=== PATIENT | female | born 1980 | race American Indian/Alaskan Native ===

== ENCOUNTER 2017-02-08 11:31 | Emergency (ER) | payer OTHER ==
--- NOTE | 2017-02-08 14:58 | XRay Report ---
LEFT TOES: History: Fifth toe pain. The bony architecture is intact. Bony alignment is normal. No soft tissue abnormalities are seen. The joint spaces appear preserved. IMPRESSION: Normal left toes.
[2017-02-08] MEDS ORDERED: ULTRAM PO ONE (16:49)
[2017-02-08 16:57] VITALS: BP 151/89
--- NOTE | 2017-02-09 22:04 | Emergency Department Report ---
Entered by AVERY ANGEL, acting as scribe for ZAN BELTRÁN NP. ED Lower Extremity HPI - General Chief Complaint: Extremity Injury, Lower Stated Complaint: PAIN IN TOES Source: patient Mode of arrival: Ambulatory Limitations: No Limitations - History of Present Illness Initial Comments: 36 year old female with no significant PMHx presents to the ED c/o of left pinky toe pain that began this morning. Patient states that she was walking and subsequently kicked her toe straight against a coffee table. Rates pain a 10/10 in severity. Pain is worsened with standing and walking. Denies loss of consciousness, numbness, tingling, chest pain, SOB, and nausea. Patient was brought to the ED by her sister. LMP 09/14/2016. NKDA. DELACRUZ Complaint: foot injury (straight left pinky toe impact against a coffee table ) -: This morning Injury: Toes: Left (pinky toes) Type of Injury: other (straight left toe impact against a coffee table) Place: home Severity: moderate Severity scale (0 -10): 10 Improves With: immobilization Worsens With: weight bearing (standing) Context: walking (and kicked toes against coffe table) Associated Symptoms: able to partially bear weight, ambulatory. denies: snap/ pop sensation, swelling, numbness, tingling - Related Data Previous Rx's Medication Instructions Recorded Last Taken Type HYDROcodone/APAP 5-325 [[place] 1 each PO Q6HR PRN #30 tablet 06/04/16 Unknown Rx 5/325] Ibuprofen [Motrin] 800 mg PO Q8HR PRN #60 tablet 06/04/16 Unknown Rx traMADol [Ultram] 50 mg PO Q4HR PRN 5 Days 02/08/17 Unknown Rx Allergies Allergy/AdvReac Type Severity Reaction Status Date / Time No Known Allergies Allergy Verified 02/21/16 16:13 ED Review of Systems Comment: All other systems reviewed and negative Constitutional: denies: chills, weakness (generalized), other (tingling and loss of consciousness) Eyes: denies: eye pain, eye discharge, vision change ENT: denies: ear pain, throat pain Respiratory: denies: orthopnea, shortness of breath, SOB with exertion, SOB at rest Cardiovascular: denies: chest pain Gastrointestinal: denies: nausea Musculoskeletal: other (left pinky toe pain) Skin: denies: rash, lesions Neurological: denies: numbness Psychiatric: denies: anxiety, depression ED Past Medical Hx - Past Medical History Previous Medical History?: Yes Hx Hypertension: No Hx Congestive Heart Failure: No Hx Diabetes: No Hx Deep Vein Thrombosis: No Hx Renal Disease: No Hx Sickle Cell Disease: No Hx Seizures: No Hx Asthma: No Hx COPD: No Hx HIV: No Additional medical history: ovarian cyst - Surgical History Past Surgical History?: Yes Additional Surgical History: hernia surg - Social History Smoking Status: Never Smoker Substance Use Type: None - Medications Home Medications: Home Medications Medication Instructions Recorded Confirmed Last Taken Type HYDROcodone/APAP 5-325 [[place] 1 each PO Q6HR PRN #30 tablet 06/04/16 Unknown Rx 5/325] Ibuprofen [Motrin] 800 mg PO Q8HR PRN #60 tablet 06/04/16 Unknown Rx traMADol [Ultram] 50 mg PO Q4HR PRN 5 Days 02/08/17 Unknown Rx ED Physical Exam - General Limitations: No Limitations General appearance: alert, in no apparent distress - Head Head exam: Present: atraumatic, normocephalic - Eye Eye exam: Present: normal appearance, EOMI Pupils: Present: normal accommodation - ENT ENT exam: Present: normal exam, mucous membranes moist, TM's normal bilaterally - Neck Neck exam: Present: normal inspection, full ROM - Respiratory Respiratory exam: Present: normal lung sounds bilaterally. Absent: respiratory distress - Cardiovascular Cardiovascular Exam: Present: regular rate, normal rhythm - GI/Abdominal GI/Abdominal exam: Present: soft. Absent: distended - Extremities Exam Extremities exam: Present: normal inspection, full ROM, tenderness (left pinky toe), normal capillary refill. Absent: pedal edema, joint swelling (left pinky toe and left lateral foot) - Expanded Lower Extremity Exam Left Hip exam: Present: normal inspection, full ROM. Absent: tenderness Upper Leg exam: Present: normal inspection, full ROM. Absent: tenderness Knee exam: Present: normal inspection, full ROM. Absent: tenderness Lower Leg exam: Present: normal inspection, full ROM. Absent: tenderness Ankle exam: Present: normal inspection, full ROM. Absent: tenderness Foot/Toe exam: Present: normal inspection, full ROM, tenderness (left pinky toe) . Absent: swelling, abrasion, laceration, ecchymosis, deformity, erythema Neuro vascular tendon exam: Present: no vascular compromise. Absent: pulse deficit, abnormal cap refill, motor deficit, sensory deficit, tendon deficit, pallor Gait: Positive: antalgic - Back Exam Back exam: Present: normal inspection, full ROM - Neurological Exam Neurological exam: Present: alert, oriented X3 - Psychiatric Psychiatric exam: Present: normal affect, normal mood - Skin Skin exam: Present: warm, dry, intact. Absent: rash, erythema (left pinky toe) , ecchymosis, other (left pinky toe edema) ED Course Vital Signs 02/08/17 02/08/17 12:23 16:55 Temperature 98.6 F 98 F Pulse Rate 64 76 Respiratory 16 18 Rate Blood Pressure 143/100 Blood Pressure 151/89 [Right] O2 Sat by Pulse 100 100 Oximetry Vital Signs 02/08/17 02/08/17 12:23 16:55 Temperature 98.6 F 98 F Pulse Rate 64 76 Respiratory 16 18 Rate Blood Pressure 143/100 Blood Pressure 151/89 [Right] O2 Sat by Pulse 100 100 Oximetry ED Lower Extremity MDM - Medical Decision Making Ed course: This is a 36-year-old female that presents with thank you for injury to the left. 1- x-ray of the left toe read by Dr. Kenny. Normal left toes. No fracture noted. 2- I prescribed Ultram by mouth for pain. 3- Mik wrap to the left foot. 4- I instructed the patient to follow-up with orthopedic doctor in 3-5 days. 5- at the time of discharge the patient does not seem toxic or ill appearance. No further questions for the patient noted. 6- patient agrees to discharge planning treatment. 7- I instructed for the patient to RICE ED Disposition Clinical Impression: Contusion of toe, left Disposition: DISCHARGED TO HOME OR SELFCARE Is pt being admited?: No Does the pt Need Aspirin: No Condition: Stable Instructions: Tramadol (By mouth), RICE Therapy (ED) Additional Instructions: Follow-up with orthopedic doctor in 3-5 days. Do not use any heavy machinery or drink alcohol while taking Ultram. If symptoms worsen please report back to emergency room. Rest, elevate, ice to affected area. Prescriptions: traMADol [Ultram] 50 mg PO Q4HR PRN 5 Days PRN Reason: Pain Referrals: DR MOISÉS [Other] - 3-5 Days ALEX DUBON MD [Staff Physician] - 3-5 Days [facility] [Outside] - 3-[address] [facility] [Outside] - 3-5 Days Forms: Work/School Release Form(ED) This documentation as recorded by the JEANNE sparrow JASMINE,accurately reflects the service I personally performed and the decisions made by me,ZAN BELTRÁN, MARINE WATER TENDER.
== END 2017-02-08 17:03 | disposition home or self-care (01) ==
LOC: ED 11:31
DX: S90.122A Contusion of left lesser toe(s) without damage to nail, initial encounter (principal); W22.8XXA Striking against or struck by other objects, initial encounter; Y93.89 Activity, other specified; Y99.8 Other external cause status; Y92.098 Other place in other non-institutional residence as the place of occurrence of the external cause
CPT/HCPCS: 99283

== ENCOUNTER 2019-02-17 11:33 | Emergency (ER) | payer OTHER ==
[2019-02-17 12:23] VITALS: BP 155/88
--- NOTE | 2019-02-17 12:24 | Emergency Department Report ---
Chief Complaint: Pain General Stated Complaint: BACK PAIN Time Seen by Provider: 02/17/19 12:20 - HPI History of Present Illness: pt presents with upper back pain x 3 months also left breast pain x 3 months, has itching, was given cream by BINDERY CHIEF states it is not working had a mammogram last year no fall, injury, or trauma no numbness or weakness pt is currently 15 weeks /P:4/A:0 no PMHx no daily meds non smoker non drinker no drug use MSE screening note: Focused history performed UA ordered ED Disposition for MSE Condition: Stable
[2019-02-17 13:22] LABS: Bacteria,Urine 1+ /HPF (Negative); Bilirubin,Urine NEG (Negative); Blood,Urine NEG (Negative); Color,Urine Yellow (Yellow); Mucus,Urine 3+ /HPF; Protein,Urine <15 mg/dL mg/dL (Negative); Urobilinogen,Urine < 2.0 mg/dL (<2.0)
--- NOTE | 2019-02-17 15:30 | Emergency Department Report ---
ED Female HPI - General Chief complaint: Pain General Stated complaint: BACK PAIN Time Seen by Provider: 02/17/19 12:20 Source: patient Mode of arrival: Ambulatory Limitations: No Limitations - History of Present Illness Initial comments: This is a 38-year-old [place] female who presents with left breast pain for 3-4 months radiating to her back. Patient is 15 weeks gestation, A0. Patient states she had ultrasound and mammogram last year by COMMUNICATION SPECIALIST when no definitive diagnosis. She also reports some itching under her left breast. Patient states she spoke with her COMMUNICATION SPECIALIST earlier today who called and cream which is waiting at [facility] for pickup. She denies chest pain, palpitations, shortness of breath, nausea or vomiting, dizziness. MD Complaint: other (left breast pain) Onset/Timin -: month(s) Radiation: other (back) Severity: mild Severity scale (0 -10): 7 Quality: aching Consistency: intermittent Improves with: none Worsens with: none Are you Now?: Yes (15 weeks gestation) Last Menstrual Period: 12/10/18 EDC: 09/16/19 Associated Symptoms: denies other symptoms - Related Data Sexually active: Yes : 5 Para: 4 A: 0 Previous Rx's Medication Instructions Recorded Last Taken Type HYDROcodone/APAP 5-325 [[place] 1 each PO Q6HR PRN #30 tablet 06/04/16 Unknown Rx 5/325] Ibuprofen [Motrin] 800 mg PO Q8HR PRN #60 tablet 06/04/16 Unknown Rx traMADol [Ultram] 50 mg PO Q4HR PRN 5 Days tablet 02/08/17 Unknown Rx Allergies Allergy/AdvReac Type Severity Reaction Status Date / Time No Known Allergies Allergy Verified 02/17/19 11:35 ED Review of Systems ROS: Stated complaint: BACK PAIN Other details as noted in HPI Constitutional: denies: chills, fever Respiratory: denies: cough, shortness of breath, wheezing Cardiovascular: denies: chest pain, palpitations Gastrointestinal: denies: abdominal pain, nausea, diarrhea Genitourinary: denies: urgency, dysuria, discharge Musculoskeletal: other (left breast pain). denies: back pain, joint swelling, arthralgia Skin: denies: rash, lesions Neurological: denies: headache, weakness, paresthesias Psychiatric: denies: anxiety, depression ED Past Medical Hx - Past Medical History Previous Medical History?: Yes Hx Hypertension: No Hx Congestive Heart Failure: No Hx Diabetes: No Hx Deep Vein Thrombosis: No Hx Renal Disease: No Hx Sickle Cell Disease: No Hx Seizures: No Hx Asthma: No Hx COPD: No Hx HIV: No Additional medical history: ovarian cyst - Surgical History Past Surgical History?: Yes Additional Surgical History: hernia surg - Social History Smoking Status: Never Smoker Substance Use Type: None - Medications Home Medications: Home Medications Medication Instructions Recorded Confirmed Last Taken Type HYDROcodone/APAP 5-325 [[place] 1 each PO Q6HR PRN #30 tablet 06/04/16 Unknown Rx 5/325] Ibuprofen [Motrin] 800 mg PO Q8HR PRN #60 tablet 06/04/16 Unknown Rx traMADol [Ultram] 50 mg PO Q4HR PRN 5 Days tablet 02/08/17 Unknown Rx ED Physical Exam - General Limitations: No Limitations General appearance: alert, in no apparent distress - Respiratory Respiratory exam: Present: normal lung sounds bilaterally. Absent: respiratory distress - Cardiovascular Cardiovascular Exam: Present: regular rate, normal rhythm. Absent: systolic murmur, diastolic murmur, rubs, gallop - GI/Abdominal GI/Abdominal exam: Present: soft, normal bowel sounds - Neurological Exam Neurological exam: Present: alert, oriented X3 - Psychiatric Psychiatric exam: Present: normal affect, normal mood - Skin Skin exam: Present: warm, dry, intact, normal color. Absent: rash - Other Other exam information: Breast: Tenderness bilaterally. No chest deformity, asymmetry, normal contours. No nodules, masses, dimpling, or discharge. ED Course Vital Signs 02/17/19 12:20 Temperature 98.5 F Pulse Rate 97 H Respiratory 18 Rate Blood Pressure 155/88 O2 Sat by Pulse 99 Oximetry ED Medical Decision Making - Lab Data Lab Results 02/17/19 Range/Units 12:59 Urine Color Yellow (Yellow) Urine Turbidity Slightly-cloudy (Clear) Urine pH 6.0 (5.0-7.0) Ur Specific [place] 1.025 (1.003-1.030) Urine Protein <15 mg/dl (Negative) mg/dL Urine Glucose (UA) 50 (Negative) mg/dL Urine Ketones Neg (Negative) mg/dL Urine Blood Neg (Negative) Urine Nitrite Neg (Negative) Urine Bilirubin Neg (Negative) Urine Urobilinogen < 2.0 (<2.0) mg/dL Ur Leukocyte Esterase Tr (Negative) Urine WBC (Auto) 3.0 (0.0-6.0) /HPF Urine RBC (Auto) 7.0 (0.0-6.0) /HPF U Epithel Cells (Auto) 3.0 (0-13.0) /HPF Urine Bacteria (Auto) 1+ (Negative) /HPF Urine Mucus 3+ /HPF - Medical Decision Making Patient was examined by me. Vitals are normal and patient is in no acute distress. A breast exam was performed and patient is tender on left without signs of infection. Patient is 15 weeks gestation. Instructed to follow up with COMMUNICATION SPECIALIST for further evaluation or imaging. Patient informed of results. Her COMMUNICATION SPECIALIST called in a prescription for cream to apply under breast for irritation. She will pickle solution maker prescription today. Patient discharged home stable. Follow up with PCP in 2-3 days. Critical care attestation.: If time is entered above; I have spent that time in minutes in the direct care of this critically ill patient, excluding procedure time. ED Disposition Clinical Impression: Breast pain, left Fibrocystic breast changes Qualifiers: Laterality: left Qualified Code(s): N60.12 - Diffuse cystic mastopathy of left breast Disposition: DC-01 TO HOME OR SELFCARE Is pt being admited?: No Does the pt Need Aspirin: No Condition: Stable Additional Instructions: On the left with an COMMUNICATION SPECIALIST for continued care. Take Tylenol every 6-8 hours as needed for pain. Referrals: PATT FLORES MD [Primary Care Provider] - 3-5 Days [facility] [Provider Group] - 3-5 Days [facility] [Provider Group] - 3-5 Days Time of Disposition: 15:32
== END 2019-02-17 15:48 | disposition home or self-care (01) ==
LOC: ED 11:33
DX: O26.892 Other specified pregnancy related conditions, second trimester (principal); N60.12 Diffuse cystic mastopathy of left breast; Z3A.15 15 weeks gestation of pregnancy
CPT/HCPCS: 81001; 99283

== ENCOUNTER 2019-07-23 20:48 | Outpatient (CLI) | payer OTHER ==
[2019-07-23 21:25] VITALS: BP 139/84
[2019-07-23 22:34] LABS: Bilirubin,Urine NEG (Negative); Blood,Urine NEG (Negative); Color,Urine Straw (Yellow); Protein,Urine <15 mg/dL mg/dL (Negative); Urobilinogen,Urine < 2.0 mg/dL (<2.0)
== END 2019-07-23 23:06 | disposition home or self-care (01) ==
LOC: TRG 20:48
PROVIDERS: ATTEND Obstetrics & Gynecology
DX: O62.9 Abnormality of forces of labor, unspecified (principal); Z3A.37 37 weeks gestation of pregnancy
CPT/HCPCS: 59025; 81001

== ENCOUNTER 2019-08-06 08:19 | Inpatient (IN) | payer OTHER ==
[2019-08-06] MEDS ORDERED: SUBLIMAZE IV PRN (09:06)
[2019-08-06] MEDS ORDERED: XYLOCAINE 2% INFILTRATI ONE (09:06)
[2019-08-06] MEDS ORDERED: BRETHINE IVP PRN (09:06)
[2019-08-06] MEDS ORDERED: PHENERGAN PO PRN (09:06)
[2019-08-06] MEDS ORDERED: NUBAIN IV PRN (09:06)
[2019-08-06] MEDS ORDERED: MINERAL OIL PO PRN (09:06)
[2019-08-06] MEDS ORDERED: NARCAN 0.4 MG/1 ML IV PRN (09:06)
[2019-08-06] MEDS ORDERED: BRETHINE SUB-Q PRN (09:06)
[2019-08-06] MEDS ORDERED: STADOL IV PRN (09:06)
[2019-08-06] MEDS ORDERED: PITOCin/NS 30 UNIT/500ML 30 UNITS/500 ML BAG IV SCH ×3 (10:00→12:00)
[2019-08-06] MEDS ORDERED: PITOCin/NS 20 UNIT/1000ML DRIP 20 UNITS/1,000 ML BAG IV SCH (10:00)
[2019-08-06 12:00] LABS: Hematocrit 28.3 % (30.3-42.9); Hemoglobin 8.9 gm/dl (10.1-14.3); Mean Corpuscular HGB Conc 31 % (30-34); Platelet Count 297 K/mm3 (140-440); Red Blood Count 4.15 M/mm3 (3.65-5.03); Red Cell Distribution Width 17.2 % (13.2-15.2)
[2019-08-06 12:03] LABS: Mean Corpuscular Volume 68 fl (79-97)
[2019-08-06 12:18] LABS: Alanine Aminotransferase 9 units/L (7-56); Uric Acid 4.9 mg/dL (3.5-7.6)
--- NOTE | 2019-08-06 12:38 | History and Physical Report ---
History of Present Illness Date of examination: 08/06/19 Date of admission: 08/06/19 08:20 Chief complaint: Here for induction History of present illness: The patient is a 38 yo at 39.3 weeks EGA who presents for IOL secondary to poorly controlled GDM. She reports positive FM and denies contractions, vaginal bleeding, or LOF. She has received care with [facility] questioned documents examiner since 13 weeks EGA. Her course has been complicated by advanced maternal age, grand multiparity, poorly controlled GDM, polyhydramnios, and poor adherence to APA appts. She is GBS negative. Past History Past Medical History: no pertinent history Past Surgical History: SENIOR PHP DEVELOPER/uterine surgery (ovarian cystectomy), other (hernia repair) SENIOR PHP DEVELOPER History: abnormal PAP smear (ASCUS 01/06/19) Family/Genetic History: none Social history: no significant social history - Obstetrical History Expected Date of Delivery: 08/10/19 Actual Gestation: 39 Week(s) 3 Day(s) : 5 Para: 4 Hx # Term Pregnancies: 4 Number of Living Children: 4 Medications and Allergies Allergies Allergy/AdvReac Type Severity Reaction Status Date / Time No Known Allergies Allergy Verified 08/06/19 09:12 Home Medications Medication Instructions Recorded Confirmed Last Taken Type Vitamin 325 unit PO DAILY 08/06/19 08/06/19 08/05/19 09:00 History Active Meds: Active Medications Butorphanol Tartrate (Stadol) 2 mg IV Q2H PRN PRN Reason: Pain , Severe (7-10) Ephedrine Sulfate (Ephedrine Sulfate) 10 mg IV Q2M PRN PRN Reason: Hypotension Fentanyl (Sublimaze) 100 mcg IV Q2H PRN PRN Reason: Labor Pain Oxytocin/Sodium Chloride (Pitocin/Ns 20 Unit/1000ml Drip) 20 units in 1,000 mls @ 125 mls/hr IV DIRECT JULIÁN Oxytocin/Sodium Chloride (Pitocin/Ns 30 Unit/500ml) 30 units in 500 mls @ 1 mls/hr IV TITR JULIÁN; Protocol Oxytocin/Sodium Chloride (Pitocin/Ns 30 Unit/500ml) 30 units in 500 mls @ 0 mls/hr IV TITR JULIÁN; Protocol Lactated Ringer's (Lactated Ringers) 1,000 mls @ 125 mls/hr IV DIRECT JULIÁN Oxytocin/Sodium Chloride (Pitocin/Ns 30 Unit/500ml) 30 units in 500 mls @ 1 mls/hr IV TITR JULIÁN; Protocol Mineral Oil (Mineral Oil) 30 ml PO QHS PRN PRN Reason: Constipation Nalbuphine HCl (Nubain) 10 mg IV Q2H PRN PRN Reason: Pain, Moderate (4-6) Naloxone HCl (Narcan 0.4 Mg/1 Ml) 0.1 mg IV Q2MIN PRN PRN Reason: Res Rate </= 8 or 02 SAT < 92% Promethazine HCl (Phenergan) 25 mg PO Q6H PRN PRN Reason: Nausea And Vomiting Terbutaline Sulfate (Brethine) 0.25 mg SUB-Q ONCE PRN PRN Reason: Hyperstimulation/Hypertonicity Terbutaline Sulfate (Brethine) 0.25 mg IVP ONCE PRN PRN Reason: Hyperstimulation/Hypertonicity Review of Systems All systems: negative Eyes: no blurred vision, no other (scotomata) Cardiovascular: no chest pain, no edema Respiratory: no shortness of breath Gastrointestinal: no abdominal pain, no nausea, no heartburn Genitourinary: no vaginal bleeding, no vaginal discharge, no leakage of fluid, no dysuria, no contractions Neurological: no headaches - Vital Signs Vital signs: Vital Signs Pulse BP 97 H 137/95 08/06/19 08:47 08/06/19 08:47 Temp Pulse Resp BP Pulse Ox 82 147/93 100 08/06/19 11:03 08/06/19 11:03 08/06/19 10:30 - Physical Exam Lungs: Positive: Normal air movement Abdomen: Positive: normal appearance, soft Genitourinary (Female): Positive: normal external genitalia, normal perenium Vagina: Positive: normal moisture Uterus: Positive: enlarged (gravid), normal contour Anus/Rectum: Positive: normal perianal skin Extremities: Positive: normal - Obstetrical FHR: category 1 Uterine Contraction Monitor Mode: External Cervical Dilatation: 2 Cervical Effacement Percentage: 40 station: -3 Uterine Contraction Pattern: Absent Results Result Diagrams: 08/06/19 10:52 08/06/19 10:52 Abnormal lab results 08/06/19 08/06/19 Range/Units 10:52 10:52 Hgb 8.9 L (10.1-14.3) gm/dl Hct 28.3 L (30.3-42.9) % MCV 68 L (79-97) fl MCH 21 L (28-32) pg RDW 17.2 H (13.2-15.2) % Creatinine 0.5 L (0.7-1.2) mg/dL Lactate Dehydrogenase 203 H (91-180) units/L All other labs normal. Assessment and Plan A: 38 yo at 39.3 weeks EGA Poorly controlled GDM Gestational hypertension Hx polyhydramnios this Advanced maternal age P: Admit for induction of labor Cervical ripening with low-dose Pitocin PIH labs Accucheck q4hr Pain relief as requested Anticipate
[2019-08-06] MEDS: LACTATED RINGERS 1,000 ML IV SCH (14:20)
[2019-08-06] MEDS ORDERED: CERVIDIL VG ONE (17:46)
--- NOTE | 2019-08-06 18:08 | Event Note ---
Date: 08/06/19 Cook Catheter placed in sterile fashion, both balloons inflated to 80cc. SVE now 2.5/50/-3. Patient tolerated well. Continue low dose Pitocin.
[2019-08-07] MEDS: LACTATED RINGERS 1,000 ML IV SCH (05:25)
--- NOTE | 2019-08-07 08:40 | Progress Note ---
Assessment and Plan A: 38 yo at 39.3 weeks EGA Poorly controlled GDM- BG normal during hospital stay Gestational hypertension Hx polyhydramnios this Advanced maternal age P: AROM clear fluid at 0830, FHT category 1 throughout Accucheck q4hr Pain relief as requested Anticipate Subjective - Subjective Date of service: 08/07/19 Principal diagnosis: IOL for GDM Interval history: The patient is a 38 yo at 39.4 weeks EGA who is on day 2 of IOL for poorly controlled GDM. She was also found to have elevated BP upon admission, and has been diagnosed with gestational hypertension. BP have been mild range to normotensive overnight. She is s/p Cook catheter and low dose pit. Pit was increased overnight after she was found to be 3cm dilated. Patient reports: contractions (q5 min), other (spotting), no loss of fluid Objective - Vital Signs Vital Signs: Vital Signs - 12hr 08/06/19 08/06/19 08/06/19 21:23 22:24 23:24 Temperature Pulse Rate 90 78 90 Respiratory Rate Blood Pressure 146/70 135/73 144/88 08/06/19 08/06/19 08/07/19 23:25 23:30 00:24 Temperature 98.2 F Pulse Rate 96 H 84 Respiratory 20 Rate Blood Pressure 129/76 152/89 08/07/19 08/07/19 08/07/19 00:25 02:25 03:30 Temperature 98.6 F Pulse Rate 84 76 Respiratory 18 Rate Blood Pressure 140/89 145/87 08/07/19 08/07/19 03:32 07:57 Temperature 98.7 F Pulse Rate 86 Respiratory Rate Blood Pressure 137/86 - Exam Abdomen: Present: soft Uterus: Present: normal FHR: category 1 Uterine Contraction Monitor Mode: External Cervical Dilatation: 5 Cervical Effacement Percentage: 50 station: -3 Uterine Contraction Frequency (min): 5 Uterine Contraction Duration: 60 Uterine Contraction Pattern: Irregular Extremities: normal - Labs Labs: Abnormal Labs 08/06/19 08/06/19 08/06/19 10:52 10:52 13:29 Hgb 8.9 L Hct 28.3 L MCV 68 L MCH 21 L RDW 17.2 H Creatinine 0.5 L POC Glucose 62 L Lactate Dehydrogenase 203 H Laboratory Results - last 24 hr 08/06/19 08/06/19 08/06/19 10:52 10:52 10:52 WBC 7.8 RBC 4.15 Hgb 8.9 L Hct 28.3 L MCV 68 L MCH 21 L MCHC 31 RDW 17.2 H Plt Count 297 Creatinine Estimated GFR POC Glucose Uric Acid AST ALT Lactate Dehydrogenase RPR Nonreactive Blood Type AB POSITIVE Antibody Screen Negative 08/06/19 08/06/19 08/06/19 10:52 13:29 19:03 WBC RBC Hgb Hct MCV MCH MCHC RDW Plt Count Creatinine 0.5 L Estimated GFR > 60 POC Glucose 62 L 71 Uric Acid 4.9 AST 18 ALT 9 Lactate Dehydrogenase 203 H RPR Blood Type Antibody Screen 08/07/19 07:54 WBC RBC Hgb Hct MCV MCH MCHC RDW Plt Count Creatinine Estimated GFR POC Glucose 73 Uric Acid AST ALT Lactate Dehydrogenase RPR Blood Type Antibody Screen
[2019-08-07] MEDS ORDERED: PHENERGAN PR PRN (11:48)
[2019-08-07] MEDS ORDERED: CYTOTEC PR PRN (11:48)
[2019-08-07] MEDS ORDERED: BENADRYL PO PRN (11:48)
[2019-08-07] MEDS ORDERED: DULCOLAX PR PRN (11:48)
[2019-08-07] MEDS ORDERED: TYLENOL PO PRN (11:48)
[2019-08-07] MEDS ORDERED: PHENERGAN PO PRN (11:48)
[2019-08-07] MEDS ORDERED: PERCOCET 5/325 PO PRN (11:48)
[2019-08-07] MEDS ORDERED: LANSINOH TP PRN (11:48)
[2019-08-07] MEDS ORDERED: ZOFRAN IV PRN (11:48)
[2019-08-07] MEDS ORDERED: MILK OF MAGNESIA PO PRN (11:48)
[2019-08-07] MEDS ORDERED: TUCKS PAD TP PRN (11:48)
--- NOTE | 2019-08-07 11:55 | Procedure Note ---
OB Delivery Note - Delivery Date of Delivery: 08/07/19 Surgeon: CAROLE BAUTISTA ([facility]) Estimated blood loss: 100cc - Vaginal Delivery presentation: vertex Delivery position: OA Intrapartum events: gestational hypertension Delivery induction: oxytocin (and cook catheter) Delivery augmentation: rupture of membranes, pitocin Delivery monitor: external FHT Route of delivery: Delivery placenta: spontaneous Delivery cord: 3 umbilical vessels Episiotomy: none Delivery laceration: 1st degree Delivery repair: other (none) Anesthesia: none Delivery comments: Excellent maternal effort resulted in dixon delivery of viable female at 1230. Provider en route when baby was delivered. Vigorous to maternal abdomen, delayed cord clamping x7 minutes. 8lb 9oz, Apgars 8/9. Placenta delivered spontaneously and intact at 1237, 3VC. Shallow 1st degree laceration noted, hemostatic, not repaired. Pt desires both breast and bottle feeding. - Infant A at 1 minute: 8 at 5 minutes: 9 Infant Gender: Female
[2019-08-07] MEDS ORDERED: SODIUM CHLORIDE FLUSH SYRINGE 10 ML IV NR (12:00)
[2019-08-07] MEDS ORDERED: MAGNESIUM SULFATE 4GM/100ML 4 GM/100 ML BAG IV ONE (12:36)
[2019-08-07] MEDS ORDERED: APRESOLINE IV PRN (12:38)
[2019-08-07] MEDS ORDERED: MAGNESIUM SULFATE 40GM/1000ML 40 GM/1,000 ML BAG IV SCH (13:00)
[2019-08-07] MEDS: IBUPROFEN PO SCH ×3 (13:56→23:51)
[2019-08-07] MEDS ORDERED: CALCIUM GLUCONATE IV SCH (17:45)
[2019-08-07] MEDS ORDERED: LACTATED RINGERS 1,000 ML IV SCH (18:00)
[2019-08-07] MEDS ORDERED: NORMODYNE PO SCH (22:00)
[2019-08-07 23:29] LABS: Hematocrit 24.1 % (30.3-42.9); Hemoglobin 7.9 gm/dl (10.1-14.3)
[2019-08-07] MEDS: FEOSOL PO SCH (23:52)
[2019-08-08] MEDS: IBUPROFEN PO SCH ×4 (06:04→23:34)
--- NOTE | 2019-08-08 08:32 | Progress Note ---
Assessment and Plan A/P PPD 1 s/p mag for PIH for 24hrs transfer to at 2p consdier labetolol for BP close monitor of maternal status Subjective - Subjective Date of service: 08/08/19 Principal diagnosis: s/p /DM/PIH s/p mag Patient reports: appetite normal, voiding normally, pain well controlled, flatus, ambulating normally : doing well Objective - Vital Signs Latest vital signs: Vital Signs Temp Pulse Resp BP BP Pulse Ox 08/08/19 08:08 74 140/81 08/08/19 07:38 75 138/92 08/08/19 07:26 86 99 08/08/19 07:21 84 98 08/08/19 07:16 84 98 08/08/19 07:11 84 98 08/08/19 07:08 83 130/61 08/08/19 07:06 84 99 08/08/19 07:01 85 99 08/08/19 06:56 83 100 08/08/19 06:51 80 100 08/08/19 06:46 79 99 08/08/19 06:41 64 59 L 08/08/19 06:38 75 123/73 123/73 100 08/08/19 06:36 78 100 08/08/19 06:35 75 0 L 08/08/19 06:08 77 142/88 142/88 08/08/19 05:09 82 157/83 157/83 08/08/19 04:38 98.3 F 84 20 139/78 139/78 08/08/19 03:38 77 138/80 08/08/19 03:08 87 135/84 08/08/19 02:38 81 145/83 08/08/19 02:08 74 141/80 08/08/19 01:38 80 136/85 08/08/19 01:08 76 135/79 135/79 08/08/19 00:38 86 124/79 08/08/19 00:08 98.7 F 81 20 139/82 139/82 08/07/19 23:51 20 08/07/19 23:39 83 134/91 08/07/19 23:08 82 127/70 08/07/19 22:38 86 129/71 08/07/19 22:08 91 H 123/66 10/17/19 21:38 97 H 131/73 17/19 21:08 99 H 131/74 17/19 20:38 103 H 123/72 17/19 20:17 63 L 19 20:12 117 H 69 L 19 20:08 98.5 F 100 H 19 124/70 124/70 99 17/19 20:05 107 H 95 17/19 20:03 107 H 92 1719 20:00 101 H 98 17/19 19:55 107 H 99 17/19 19:51 109 H 94 17/19 19:50 105 H 99 17/19 19:45 111 H 100 17/19 19:40 109 H 100 17/19 19:38 112 H 120/71 17/19 19:35 118 H 100 17/19 19:30 122 H 100 17/19 19:19 116 H 99 19 19:11 112 H 99 19 19:08 111 H 128/69 1719 19:06 122 H 100 17/19 19:01 121 H 71 L 19 18:56 111 H 100 17/19 18:51 112 H 100 17/19 18:38 113 H 132/74 99 17/19 18:33 110 H 99 17/19 18:28 114 H 99 17/19 18:23 112 H 99 17/19 18:18 114 H 98 17/19 18:08 117 H 141/74 17/19 17:59 124 H 99 17/19 17:54 116 H 98 17/19 17:49 99 H 100 17/19 17:44 92 H 98 17/19 17:39 103 H 176/79 98 17/19 17:37 106 H 176/79 17/19 17:34 94 H 99 17/19 17:33 96 H 181/79 17/19 17:29 105 H 99 17/19 17:28 99 H 165/72 17/19 17:24 99 H 99 17/19 17:22 102 H 187/86 17/19 17:19 110 H 99 10/17/19 17:17 96 H 182/86 08/07/19 17:14 102 H 99 08/07/19 17:12 100 H 177/86 08/07/19 17:09 101 H 99 08/07/19 17:07 99 H 181/84 08/07/19 17:04 102 H 100 08/07/19 17:02 101 H 177/81 08/07/19 16:59 107 H 100 08/07/19 16:57 103 H 179/84 08/07/19 16:54 110 H 100 08/07/19 16:52 107 H 170/82 08/07/19 16:49 101 H 100 08/07/19 16:47 100 H 166/81 08/07/19 16:44 101 H 100 08/07/19 16:42 101 H 157/75 08/07/19 16:39 115 H 100 08/07/19 16:37 110 H 146/69 08/07/19 16:34 108 H 100 08/07/19 16:32 103 H 149/71 08/07/19 16:29 111 H 100 08/07/19 16:27 106 H 152/72 08/07/19 16:24 105 H 100 08/07/19 16:22 110 H 148/68 08/07/19 16:20 108 H 158/76 08/07/19 16:19 107 H 18 158/76 100 08/07/19 16:17 102 H 159/75 92 08/07/19 16:14 103 H 100 08/07/19 16:12 105 H 159/74 08/07/19 16:11 108 H 91 08/07/19 16:09 121 H 98 08/07/19 16:07 115 H 155/72 08/07/19 16:06 112 H 87 08/07/19 16:04 111 H 99 08/07/19 16:02 108 H 163/80 08/07/19 15:59 110 H 99 08/07/19 15:57 105 H 160/83 08/07/19 15:54 113 H 99 08/07/19 15:52 106 H 153/78 08/07/19 15:49 102 H 99 08/07/19 15:47 101 H 157/76 08/07/19 15:44 105 H 100 08/07/19 15:42 99 H 153/75 19 15:39 113 H 100 19 15:37 100 H 160/79 19 15:34 95 H 100 19 15:32 95 H 154/81 19 15:29 93 H 100 08/07/19 15:27 94 H 162/86 08/07/19 15:24 97 H 100 08/07/19 15:22 100 H 162/86 08/07/19 15:19 91 H 100 08/07/19 15:17 90 161/86 08/07/19 15:14 85 100 08/07/19 15:12 94 H 154/82 08/07/19 15:09 88 100 08/07/19 15:07 86 154/82 08/07/19 15:04 90 100 08/07/19 15:02 86 162/85 08/07/19 14:59 92 H 100 08/07/19 14:57 84 159/86 08/07/19 14:54 86 100 08/07/19 14:52 83 158/84 08/07/19 14:49 87 99 08/07/19 14:47 86 154/83 08/07/19 14:44 84 99 08/07/19 14:42 86 152/80 08/07/19 14:39 83 100 08/07/19 14:37 80 150/74 08/07/19 14:34 98 H 99 08/07/19 14:32 91 H 156/80 08/07/19 14:29 82 99 08/07/19 14:27 80 156/81 08/07/19 14:24 90 100 08/07/19 14:22 87 153/82 08/07/19 14:19 78 99 08/07/19 14:17 81 153/80 08/07/19 14:14 81 99 08/07/19 14:12 80 148/73 08/07/19 14:09 80 99 08/07/19 14:07 86 151/69 08/07/19 14:04 93 H 99 08/07/19 14:02 90 133/75 08/07/19 13:59 101 H 98 08/07/19 13:54 91 H 99 08/07/19 13:52 89 139/70 08/07/19 13:49 94 H 99 08/07/19 13:47 92 H 149/75 08/07/19 13:44 98 H 98 08/07/19 13:43 106 H 145/76 08/07/19 13:39 91 H 98 08/07/19 13:37 81 158/74 08/07/19 13:34 80 99 08/07/19 13:32 96 H 157/84 08/07/19 13:29 81 145/75 08/07/19 13:27 137 H 145/77 08/07/19 13:23 81 143/81 08/07/19 13:15 88 144/80 08/07/19 13:14 93 H 154/82 08/07/19 12:56 71 147/86 08/07/19 12:53 81 139/81 08/07/19 12:50 75 145/83 08/07/19 12:38 73 153/89 08/07/19 12:33 80 167/78 08/07/19 12:32 83 198/88 08/07/19 12:20 77 152/82 08/07/19 12:08 87 155/101 08/07/19 11:53 97 H 152/87 08/07/19 11:42 88 159/81 08/07/19 11:38 102 H 161/87 08/07/19 11:24 106 H 157/82 08/07/19 11:18 99 H 165/90 08/07/19 11:09 100 H 170/100 08/07/19 10:42 81 152/84 08/07/19 10:40 96 H 195/93 08/07/19 10:38 88 154/82 08/07/19 10:25 83 168/83 08/07/19 09:55 82 145/70 Intake and Output 08/07/19 08/08/19 08/08/19 23:59 07:59 15:59 Intake Total 240 240 Output Total 400 1550 Balance -160 -1310 Intake: Oral 240 240 Output: Urine 400 1550 Indwelling Catheter 400 1550 Other: Total, Intake Amount 240 120 Total, Output Amount 200 300 - Exam Breasts: Present: normal Cardiovascular: Present: Regular rate, Normal S1 Lungs: Present: Clear to auscultation, Normal air movement Abdomen: Present: normal appearance, soft, normal bowel sounds. Absent: distention, tenderness, guarding Vulva: both: normal Uterus: Present: normal, firm, fundal height below umbilicus. Absent: bogginess, tenderness Extremities: Present: normal Incision: Present: normal, dry - Labs Labs: Abnormal lab results 08/07/19 08/07/19 08/07/19 Range/Units 13:55 23:01 23:01 Hgb 7.9 L (10.1-14.3) gm/dl Hct 24.1 L (30.3-42.9) % Magnesium 3.40 H 4.70 H (1.7-2.3) mg/dL 08/08/19 Range/Units 05:37 Hgb (10.1-14.3) gm/dl Hct (30.3-42.9) % Magnesium 4.90 H (1.7-2.3) mg/dL
[2019-08-08] MEDS: FEOSOL PO SCH ×2 (10:20→23:34)
[2019-08-08] MEDS ORDERED: BOOSTRIX IM ONE (11:48)
[2019-08-09] MEDS: IBUPROFEN PO SCH ×2 (05:31→12:00)
[2019-08-09] MEDS: FEOSOL PO SCH (10:55)
[2019-08-09 12:28] VITALS: BP 139/85
--- NOTE | 2019-08-09 12:43 | Progress Note ---
Assessment and Plan A/P PPD 2 s/p mag for PIH for 24hrs BP 130-140/80s discharge home with BP check in 1 week Subjective - Subjective Date of service: 08/09/19 Principal diagnosis: s/p /DM/PIH s/p mag Patient reports: appetite normal, voiding normally, pain well controlled, flatus, ambulating normally [place]: doing well Objective - Vital Signs Latest vital signs: Vital Signs Temp Pulse Resp BP BP Pulse Ox 08/09/19 12:05 98.3 F 72 20 139/85 100 08/09/19 08:19 98.4 F 78 20 141/88 99 08/09/19 00:37 98.5 F 84 20 129/80 97 08/08/19 16:51 98.5 F 88 14 132/83 08/08/19 14:04 97.9 F 85 18 133/82 100 08/08/19 13:40 86 18 120/69 120/69 08/08/19 13:09 82 176/79 Intake and Output 08/08/19 08/09/19 08/09/19 23:59 07:59 15:59 Intake Total 720 360 240 Balance 720 360 240 Intake: Oral 720 360 240 Other: Total, Intake Amount 240 120 240 # Voids Void 1 1 1 # Bowel Movements 1 - Exam Breasts: Present: normal Cardiovascular: Present: Regular rate, Normal S1 Lungs: Present: Clear to auscultation, Normal air movement Abdomen: Present: normal appearance, soft, normal bowel sounds. Absent: distention, tenderness, guarding Vulva: both: normal Uterus: Present: normal, firm, fundal height below umbilicus. Absent: bogginess, tenderness Extremities: Absent: normal Deep Tendon Reflex Grade: Normal +2 - Labs Labs: Abnormal lab results 08/08/19 Range/Units 12:14 Magnesium 4.00 H (1.7-2.3) mg/dL
--- NOTE | 2019-08-09 12:45 | Discharge Summary ---
Providers - Providers Date of Admission: 08/06/19 08:20 Date of discharge: 08/09/19 Attending physician: ENA ELIZABETH MD Primary care physician: ENA ELIZABETH MD Hospitalization Reason for admission: induction of labor Delivery: Episiotomy: none Laceration: none Incision: normal, dry, intact Other procedures: none complications: other (preeclampsia ) Discharge diagnosis: IUP at term delivered [place] baby: female Hospital course: Jacob had IOL for DM and delivered female. Notable increase in BP mag intiated for 24hrs. Did well PP BP 130-140/80s. No blood pressure meds indicated. Follow up on Sunday for BP check Condition at discharge: Good Disposition: DC- TO HOME OR SELFCARE Plan - Discharge Medications Prescriptions: Ferrous Sulfate [Feosol 325 MG tab] 325 mg PO BID #60 tablet Ferrous Sulfate [Ferrous Sulfate 324 MG] 324 mg PO BID #60 tablet.dr Ibuprofen [Motrin] 600 mg PO Q6H PRN #60 tablet PRN Reason: Pain Ibuprofen [Motrin] 600 mg PO Q8H PRN #30 tablet PRN Reason: Pain - Provider Discharge Summary Activity: routine, no sex for 6 weeks, no strenuous exercise Diet: routine Instructions: routine Additional instructions: [] Smoking cessation referral if applicable(refer to patient education folder for contact #) [] Refer to [facility]'s [facility] Booklet Call your doctor immediately for: * Fever > 100.5 * Heavy vaginal bleeding ( >1 pad per hour) * Severe persistent headache * Shortness of breath * Reddened, hot, painful area to leg or breast * Drainage or odor from incision. * Keep incision clean and dry at all times and follow doctor's instructions regarding bathing/showering - Follow up plan Follow up: ENA ELIZABETH MD [Primary Care Provider] - 08/11/19
== END 2019-08-09 15:42 | disposition home or self-care (01) | DRG 807 ==
LOC: TRG 08:19 → LD 08:20 → TRG 08:22 → OB 08-08 14:20
PROVIDERS: ADMIT Obstetrics & Gynecology; ATTEND Obstetrics & Gynecology
PROC: 3E033VJ Introduction of Other Hormone into Peripheral Vein, Percutaneous Approach (ICD-10-PCS; 2019-08-06)
PROC: 0U7C7ZZ Dilation of Cervix, Via Natural or Artificial Opening (ICD-10-PCS; 2019-08-06)
PROC: 10E0XZZ Delivery of Products of Conception, External Approach (ICD-10-PCS; principal; 2019-08-07)
PROC: 0HQ9XZZ Repair Perineum Skin, External Approach (ICD-10-PCS; 2019-08-07)
PROC: 3E0234Z Introduction of Serum, Toxoid and Vaccine into Muscle, Percutaneous Approach (ICD-10-PCS; 2019-08-08)
DX: O24.420 Gestational diabetes mellitus in childbirth, diet controlled (principal); Z37.0 Single live birth; O13.4 Gestational [pregnancy-induced] hypertension without significant proteinuria, complicating childbirth; O70.0 First degree perineal laceration during delivery; Z3A.39 39 weeks gestation of pregnancy; O14.95 Unspecified pre-eclampsia, complicating the puerperium; Z23 Encounter for immunization
CPT/HCPCS: 36415; 82565; 82962; 83615; 83735; 84450; 84460; 84550; 85014; 85018; 85027; 86592; 86850; 86900; 86901; G0378; J0360; J2590; J3475; J7120